=== PATIENT | male | born 1975 | race Hispanic/Latino ===

== ENCOUNTER 2024-03-05 21:55 | Emergency (ER) | payer OTHER ==
[~2024-03-05] VITALS: Ht 182.9 cm; Wt 113.4 kg
[2024-03-05 22:18] VITALS: BP 188/104; PULSE 89; RESP 19; O2SAT 95
[2024-03-05 22:41] LABS: BASOPHILS # (AUTO) 0.05 K/uL (0.00-0.20); BASOPHILS % (AUTO) 0.4 % (0.0-5.0); EOSINOPHILS # (AUTO) 0.01 K/uL (0.00-0.70); EOSINOPHILS % (AUTO) 0.1 % (0.0-8.0); HEMATOCRIT 43.4 % (42-54); IMMATURE GRANULOCYTE ABSOLUTE 0.03 K/uL (0-1); MEAN CORPUSCULAR HEMOGLOBIN 29.1 pg (27.0-33.0); MEAN CORPUSCULAR HGB CONC 33.4 g/dL (32.0-36.0); MONOCYTES # (AUTO) 0.6 K/uL (0.1-1.0); MONOCYTES % (AUTO) 5.2 % (3.0-13.0); NEUTROPHILS # (AUTO) 9.8 K/uL (1.8-7.7); PLATELET COUNT (AUTO) 301 K/uL (130-400); RED BLOOD CELL COUNT(AUTO) 4.99 MIL/uL (4.50-6.20); RED CELL DISTRIBUTION WIDTH 13.3 % (11.0-15.5); WHITE BLOOD COUNT (AUTO) 11.6 K/uL (4.8-10.8)
[2024-03-05 22:57] LABS: CREATININE 1.3 mg/dL (0.5-1.3); POTASSIUM 3.2 mmol/L (3.5-5.1)
[2024-03-05 23:02] LABS: ALBUMIN 3.8 g/dL (3.5-5.0); BILIRUBIN,TOTAL 0.9 mg/dL (0.2-1.0); TOTAL PROTEIN, SERUM 7.1 g/dL (6.0-8.3)
== END 2024-03-05 23:26 | disposition left against medical advice (07) ==
LOC: EDH 21:55
DX: F14.10 Cocaine abuse, uncomplicated (principal)
CPT/HCPCS: 36415; 80053; 84484; 85025; 93005